=== PATIENT | female | born 1945 | race Caucasian/White ===

== ENCOUNTER 2018-10-07 22:18 | Inpatient (IN) | payer OTHER ==
[2018-10-07] MEDS: HYDROCODONE/APAP (10/325) TAB PO (22:41)
[2018-10-07] MEDS: SOD CHLORIDE 0.9% 500 ML IV (23:46)
[2018-10-07] MEDS: morphine 4 MG/ML VIAL IV (23:47)
[2018-10-07] MEDS: ONDANSETRON 4 MG INJ IV (23:47)
[2018-10-07 23:51] LABS: ADD MAN DIFF? NO
[2018-10-07 23:55] LABS: WHITE BLOOD COUNT 8.4 10^3/ul (4.8-10.8)
[2018-10-07 23:55] LABS: BASOPHIL # 0.1 10^3/ul (0.0-0.1); BASOPHILS % 0.6 % (0.0-2.0); EOSINOPHILS # 0.1 10^3/ul (0.0-0.5); EOSINOPHILS % 0.7 % (0.0-7.0); HEMATOCRIT 34.4 % (37.0-47.0); HEMOGLOBIN 11.9 g/dl (12.0-16.0); LYMPHOCYTES # 1.2 10^3/ul (0.8-2.9); LYMPHOCYTES % 14.4 % (15.0-51.0); MEAN CORPUSCULAR HGB CONC 34.6 g/dl (32.0-37.0); MEAN CORPUSCULAR VOLUME 89.6 fl (82.0-101.0); MONOCYTE # 0.6 10^3/ul (0.3-0.9); NEUTROPHIL # 6.5 10^3/ul (1.6-7.5); NEUTROPHILS % 76.9 % (39.0-77.0); PLATELET COUNT 318 10^3/UL (140-415); RED BLOOD COUNT 3.84 10^6/ul (4.20-5.40); RED CELL DISTRIBUTION WIDTH 12.6 % (11.5-14.5)
[2018-10-08 00:17] LABS: INR 0.77; PARTIAL THROMBOPLASTIN TIME 24.7 Sec (23.0-35.0); PROTIME 10.8 Sec (11.9-14.9); PT RATIO 0.8
[2018-10-08 00:18] LABS: ALANINE AMINOTRANSFERASE 29 IU/L (13-69); ALBUMIN 3.9 g/dl (3.3-4.9); ALBUMIN/GLOBULIN RATIO 2.05; ALKALINE PHOSPHATASE 59 IU/L (42-121); ANION GAP 10 (5-13); ASPARTATE AMINO TRANSFERASE 24 IU/L (15-46); BILIRUBIN,INDIRECT 0.4 mg/dl (0-1.1); BILIRUBIN,TOTAL 0.4 mg/dl (0.2-1.3); BLOOD UREA NITROGEN 8 mg/dl (7-20); CALCIUM 9.5 mg/dl (8.4-10.2); CARBON DIOXIDE 33 mmol/L (21-31); CHLORIDE 81 mmol/L (97-110); CREATININE 0.66 mg/dl (0.44-1.00); GLUCOSE 104 mg/dl (70-220); LIPASE 66 U/L (23-300); SODIUM 124 mmol/L (135-144); TOTAL PROTEIN 5.8 g/dl (6.1-8.1)
[2018-10-08 00:21] LABS: POTASSIUM 2.8 mmol/L (3.5-5.1)
[2018-10-08] MEDS ORDERED: NACL 0.9% 3 ML SYG IV (00:30)
[2018-10-08] MEDS ORDERED: DOCUSATE SODIUM 100 MG CAP PO (00:30)
[2018-10-08] MEDS ORDERED: ONDANSETRON 4 MG INJ IV (00:30)
[2018-10-08] MEDS ORDERED: ACETAMINOPHEN 325 MG TAB PO (00:30)
[2018-10-08] MEDS: POTASSIUM CHLORIDE 100 ML IVPB ×2 (01:36→07:05)
[2018-10-08] MEDS: morphine 2 MG INJ IV ×2 (02:03→10:36)
[2018-10-08] MEDS: SOD CHLORIDE 0.9% 1,000 ML IV ×3 (02:53→17:06)
[2018-10-08] MEDS ORDERED: hydrALAzine 20 MG INJ IV (03:00)
[2018-10-08] MEDS: OXYCODONE/ACETAMINOPHEN (5/325) TAB PO (03:55)
[2018-10-08] MEDS: ALPRAZOLAM 0.5 MG TAB PO ×2 (04:19→14:38)
[2018-10-08] MEDS ORDERED: POTASSIUM CHLORIDE 100 ML IVPB (06:00)
[2018-10-08] MEDS: LEVOTHYROXINE 100 MCG TAB PO (06:10)
[2018-10-08] MEDS: BACLOFEN 10 MG TAB PO ×3 (06:10→20:54)
[2018-10-08] MEDS: PANTOPRAZOLE (EC) 40 MG TAB PO (06:10)
[2018-10-08] MEDS: ASPIRIN (EC) 81 MG TAB PO (09:18)
[2018-10-08] MEDS: BUPROPION (SR) 150 MG TAB PO ×2 (09:50→20:54)
[2018-10-08] MEDS ORDERED: SENNA TAB PO (11:00)
[2018-10-08 11:43] LABS: ANION GAP 7 (5-13); BLOOD UREA NITROGEN 5 mg/dl (7-20); CARBON DIOXIDE 31 mmol/L (21-31); CHLORIDE 91 mmol/L (97-110); CREATININE 0.61 mg/dl (0.44-1.00); GLUCOSE 85 mg/dl (70-220); MAGNESIUM 1.7 mg/dl (1.7-2.5); PHOSPHORUS 3.2 mg/dl (2.5-4.9); POTASSIUM 3.3 mmol/L (3.5-5.1); SODIUM 129 mmol/L (135-144)
[2018-10-08 12:01] LABS: FREE T4 (FREE THYROXINE) 2.69 ng/dl (0.78-2.44)
[2018-10-08 12:15] LABS: THYROID STIMULATING HORMONE 0.579 MIU/L (0.465-4.680)
[2018-10-08] MEDS ORDERED: POTASSIUM CHLORIDE (SR) 20 MEQ TAB PO (12:38)
[2018-10-08] MEDS: MAGNESIUM SULFATE 2 GM/50 ML 50 ML IVPB (16:47)
[2018-10-08] MEDS: POTASSIUM CHLORIDE 20 MEQ POWDER FOR ORAL SOLN PO (17:48)
[2018-10-08] MEDS: POTASSIUM CHLORIDE (SR) 20 MEQ TAB PO (18:36)
[2018-10-08] MEDS: ATORVASTATIN 40 MG TAB PO (20:54)
[2018-10-08] MEDS: DONEPEZIL 10 MG TAB PO (20:54)
[2018-10-08] MEDS: TOLTERODINE (SR) 4 MG CAP PO (20:54)
[2018-10-08] MEDS: LOSARTAN 50 MG TAB PO (20:55)
[2018-10-09 05:35] LABS: ADD MAN DIFF? NO
[2018-10-09 05:53] LABS: MAGNESIUM 2.2 mg/dl (1.7-2.5)
[2018-10-09 06:07] LABS: WHITE BLOOD COUNT 6.6 10^3/ul (4.8-10.8)
[2018-10-09 06:07] LABS: ANION GAP 3 (5-13); BASOPHIL # 0.1 10^3/ul (0.0-0.1); BASOPHILS % 0.9 % (0.0-2.0); BLOOD UREA NITROGEN 7 mg/dl (7-20); CALCIUM 8.9 mg/dl (8.4-10.2); CARBON DIOXIDE 33 mmol/L (21-31); CHLORIDE 98 mmol/L (97-110); CREATININE 0.64 mg/dl (0.44-1.00); EOSINOPHILS # 0.2 10^3/ul (0.0-0.5); EOSINOPHILS % 2.3 % (0.0-7.0); GLUCOSE 107 mg/dl (70-220); HEMATOCRIT 33.8 % (37.0-47.0); HEMOGLOBIN 11.2 g/dl (12.0-16.0); LYMPHOCYTES # 1.1 10^3/ul (0.8-2.9); MEAN CORPUSCULAR HEMOGLOBIN 31.3 pg (29.0-33.0); MEAN CORPUSCULAR HGB CONC 33.1 g/dl (32.0-37.0); MEAN CORPUSCULAR VOLUME 94.4 fl (82.0-101.0); MEAN PLATELET VOLUME 8.4 fl (7.4-10.4); MONOCYTE # 0.7 10^3/ul (0.3-0.9); MONOCYTES % 10.5 % (0.0-11.0); NEUTROPHIL # 4.5 10^3/ul (1.6-7.5); NEUTROPHILS % 68.8 % (39.0-77.0); PLATELET COUNT 323 10^3/UL (140-415); POTASSIUM 4.1 mmol/L (3.5-5.1); RED BLOOD COUNT 3.58 10^6/ul (4.20-5.40); RED CELL DISTRIBUTION WIDTH 13.2 % (11.5-14.5); SODIUM 134 mmol/L (135-144)
[2018-10-09] MEDS: LEVOTHYROXINE 100 MCG TAB PO (06:18)
[2018-10-09] MEDS: PANTOPRAZOLE (EC) 40 MG TAB PO (06:18)
[2018-10-09] MEDS: ASPIRIN (EC) 81 MG TAB PO (09:03)
[2018-10-09] MEDS: BACLOFEN 10 MG TAB PO ×3 (09:03→20:44)
[2018-10-09] MEDS: BUPROPION (SR) 150 MG TAB PO ×2 (09:04→20:44)
[2018-10-09] MEDS: LOSARTAN 50 MG TAB PO ×2 (09:04→20:44)
[2018-10-09] MEDS: ALPRAZOLAM 0.5 MG TAB PO (09:12)
[2018-10-09] MEDS: OXYCODONE/ACETAMINOPHEN (5/325) TAB PO ×3 (13:10→22:08)
[2018-10-09] MEDS ORDERED: morphine LIQ (10 MG/5 ML) CUP PO (15:17)
[2018-10-09] MEDS: SOD CHLORIDE 0.9% 1,000 ML IV (16:35)
[2018-10-09] MEDS: ATORVASTATIN 40 MG TAB PO (20:44)
[2018-10-09] MEDS: TOLTERODINE (SR) 4 MG CAP PO (20:44)
[2018-10-09] MEDS: DONEPEZIL 10 MG TAB PO (20:45)
[2018-10-09] MEDS: ZOLPIDEM 5 MG TAB PO (23:10)
[2018-10-10] MEDS: ALPRAZOLAM 0.5 MG TAB PO (01:25)
[2018-10-10] MEDS: SOD CHLORIDE 0.9% 1,000 ML IV (05:29)
[2018-10-10] MEDS: PANTOPRAZOLE (EC) 40 MG TAB PO (06:13)
[2018-10-10] MEDS: LEVOTHYROXINE 100 MCG TAB PO (06:13)
[2018-10-10 07:00] LABS: MAGNESIUM 2.1 mg/dl (1.7-2.5)
[2018-10-10 07:01] LABS: ANION GAP 5 (5-13); BLOOD UREA NITROGEN 11 mg/dl (7-20); CALCIUM 8.7 mg/dl (8.4-10.2); CARBON DIOXIDE 32 mmol/L (21-31); CHLORIDE 98 mmol/L (97-110); CREATININE 0.52 mg/dl (0.44-1.00); GLUCOSE 113 mg/dl (70-220); POTASSIUM 3.7 mmol/L (3.5-5.1); SODIUM 135 mmol/L (135-144)
[2018-10-10] MEDS: LOSARTAN 50 MG TAB PO (09:42)
[2018-10-10] MEDS: BUPROPION (SR) 150 MG TAB PO (09:42)
[2018-10-10] MEDS: ASPIRIN (EC) 81 MG TAB PO (09:42)
[2018-10-10] MEDS: BACLOFEN 10 MG TAB PO ×2 (09:42→13:00)
== END 2018-10-10 15:45 | DRG 552 ==
LOC: E/R 22:18 → 6WM 10-08 00:06
DX: S32.011A Stable burst fracture of first lumbar vertebra, initial encounter for closed fracture (principal); S22.41XA Multiple fractures of ribs, right side, initial encounter for closed fracture; E87.1 Hypo-osmolality and hyponatremia; G91.2 (Idiopathic) normal pressure hydrocephalus; F32.9 Major depressive disorder, single episode, unspecified; M81.0 Age-related osteoporosis without current pathological fracture; I10 Essential (primary) hypertension; E03.9 Hypothyroidism, unspecified; K21.9 Gastro-esophageal reflux disease without esophagitis; E78.5 Hyperlipidemia, unspecified; E87.6 Hypokalemia; M48.00 Spinal stenosis, site unspecified; Z88.2 Allergy status to sulfonamides; Z98.2 Presence of cerebrospinal fluid drainage device; Z87.891 Personal history of nicotine dependence; W19.XXXA Unspecified fall, initial encounter
CPT/HCPCS: 36415; 71045; 72131; 72158; 80048; 80053; 83690; 83735; 84100; 84439; 84443; 85025; 85610; 85730; 96374; 96375; 97162; 97530; 99285-25